=== PATIENT | male | born 1960 | race African-American/Black ===

== ENCOUNTER 2023-05-21 21:55 | Inpatient (IN) | payer MEDICAID ==
[~2023-05-21] VITALS: Ht 190.5 cm; Wt 135.7 kg
[2023-05-21] MEDS ORDERED: ATOR20TA PO (22:13)
[2023-05-21] MEDS ORDERED: GABA-1201 PO (22:13)
[2023-05-21] MEDS ORDERED: RISP3TAB35 PO (22:13)
[2023-05-21 22:53] LABS: BASOPHILS % (AUTO) 1.1 % (0.0-2.0); EOSINOPHILS % (AUTO) 6.3 % (1.0-6.0); HEMATOCRIT 42.1 % (41-53); LYMPHOCYTES # (AUTO) 2.2 K/uL (1.0-4.8); LYMPHOCYTES % (AUTO) 29.5 % (22.0-44.0); MEAN CORPUSCULAR HEMOGLOBIN 31.9 pg (26.0-34.0); MEAN CORPUSCULAR HGB CONC 33.2 G/dL (31.0-37.0); MEAN CORPUSCULAR VOLUME 96 fL (80-100); MONOCYTES # (AUTO) 1.3 K/uL (0.1-1.0); MONOCYTES % (AUTO) 16.8 % (2.0-9.0); NEUTROPHILS # (AUTO) 3.5 K/uL (1.8-7.7); NEUTROPHILS % (AUTO) 46.3 % (40.0-70.0); PLATELET COUNT (AUTO) 193 K/uL (150-450); RED BLOOD CELL COUNT(AUTO) 4.39 MIL/uL (4.50-5.90); RED CELL DISTRIBUTION WIDTH 14.4 % (11.5-14.5)
[2023-05-21 23:01] LABS: CALCIUM, TOTAL 8.5 mg/dL (8.8-10.5); CREATININE 1.56 mg/dL (0.60-1.30); POTASSIUM 3.9 mmol/L (3.5-5.1)
[2023-05-21 23:07] LABS: ALBUMIN 3.6 g/dL (3.4-5.0); BILIRUBIN,TOTAL 0.3 mg/dL (0.1-1.0); TOTAL PROTEIN, SERUM 6.8 g/dL (6.4-8.2)
[2023-05-21 23:24] LABS: AMPHET/METH SCREEN,URINE NEGATIVE (NEGATIVE); BARBITURATE SCREEN, URINE NEGATIVE (NEGATIVE); BENZODIAZEPINES SCREEN,URINE NEGATIVE (NEGATIVE); CANNABINOID SCREEN,URINE NEGATIVE (NEGATIVE); COCAINE SCREEN,URINE NEGATIVE (NEGATIVE); METHADONE SCREEN, URINE NEGATIVE (NEGATIVE); OPIATE SCREEN,URINE NEGATIVE (NEGATIVE); PHENCYCLIDINE SCREEN,URINE NEGATIVE (NEGATIVE)
[2023-05-21] MEDS ORDERED: HALOPERIDOL 5 MG TABLET PO PRN (23:30)
[2023-05-22 00:45] LABS: COVID AG,FIA SOURCE NASAL SWAB
[2023-05-22] MEDS: ZOLPIDEM TARTRATE 10 MG TABLET PO PRN ×2 (01:33→21:15)
[2023-05-22 01:43] VITALS: BP 141/89; PULSE 94; RESP 20; TEMP 96.8; O2SAT 97
[2023-05-22] MEDS ORDERED: BENZOCAINE/MENTHOL LOZENGE PO PRN (09:00)
[2023-05-22] MEDS ORDERED: MAGNESIUM HYDROXIDE SUSPENSION 30 ML UDCUP PO PRN (09:00)
[2023-05-22] MEDS ORDERED: PETROLATUM,WHITE 28 GM JELLY TP PRN (09:00)
[2023-05-22] MEDS ORDERED: ALBUTEROL SULFATE HFA 90 MCG/PUFF 8 GM INHALER IH PRN (09:00)
[2023-05-22] MEDS ORDERED: ACETAMINOPHEN 325 MG TABLET PO PRN (09:00)
[2023-05-22] MEDS ORDERED: LOPERAMIDE HCL 2 MG CAPSULE PO PRN (09:00)
[2023-05-22] MEDS ORDERED: ONDANSETRON HCL 4 MG TABLET PO PRN (09:00)
[2023-05-22] MEDS ORDERED: CloNIDine HCL 0.1 MG TABLET PO PRN (09:00)
[2023-05-22] MEDS ORDERED: BACITRACIN 28 GM OINTMENT TP PRN (09:00)
[2023-05-22] MEDS ORDERED: DOCUSATE SODIUM 100 MG CAPSULE PO PRN (09:00)
[2023-05-22] MEDS ORDERED: OMEPRAZOLE 20 MG CAPSULE PO PRN (09:00)
[2023-05-22] MEDS ORDERED: MAG HYDROX/AL HYDROX/SIMETH ES 30 ML SUSPENSION UDCUP PO PRN (09:00)
[2023-05-22] MEDS: LISINOPRIL 10 MG TABLET PO SCH (09:06)
[2023-05-22] MEDS: ATORVASTATIN CALCIUM 20 MG TABLET PO SCH (09:06)
[2023-05-22] MEDS ORDERED: DEXTROSE 50%-WATER 25 GM/50 ML SYRINGE IVP PRN (09:15)
[2023-05-22 09:36] VITALS: BP 140/74; PULSE 88; RESP 17; TEMP 97.9; O2SAT 98
[2023-05-22 11:16] LABS: GLUCOMETER DEV NAME(LOC) 3EX.2; GLUCOSE,POINT OF CARE 92 MG/DL (70-110)
[2023-05-22] MEDS ORDERED: METF-1211 PO (11:45)
[2023-05-22] MEDS ORDERED: ASPI-1444 PO (11:45)
[2023-05-22] MEDS ORDERED: MIRT-92 PO (11:45)
[2023-05-22] MEDS ORDERED: ATOR-2 PO (11:45)
[2023-05-22] MEDS ORDERED: LOSA100T59 PO (11:45)
[2023-05-22] MEDS ORDERED: AMLO10TA55 PO (11:45)
[2023-05-22 16:21] LABS: GLUCOMETER DEV NAME(LOC) 3EX.2; GLUCOSE,POINT OF CARE 98 MG/DL (70-110)
[2023-05-22 19:50] VITALS: BP 140/74; PULSE 88; RESP 18; TEMP 97.9
[2023-05-22] MEDS: IBUPROFEN 600 MG TABLET PO PRN (19:55)
[2023-05-22 20:10] VITALS: BP 154/81; PULSE 76; RESP 1; TEMP 98.1
[2023-05-22 20:17] LABS: GLUCOMETER DEV NAME(LOC) 3EX.2; GLUCOSE,POINT OF CARE 119 MG/DL (70-110)
[2023-05-22] MEDS: RisperiDONE 3 MG TABLET PO SCH (20:50)
[2023-05-22] MEDS: LORazepam 2 MG TABLET PO PRN (21:16)
[2023-05-23] MEDS: INSULIN LISPRO 100 UNITS/ML SQ PRN ×4 (06:34→22:21)
[2023-05-23 06:46] LABS: GLUCOMETER DEV NAME(LOC) 3EX.2; GLUCOSE,POINT OF CARE 113 MG/DL (70-110)
[2023-05-23 08:16] VITALS: BP 130/87; PULSE 88; RESP 18; TEMP 97.2; O2SAT 97
[2023-05-23] MEDS: LISINOPRIL 10 MG TABLET PO SCH (09:00)
[2023-05-23] MEDS: GABAPENTIN 400 MG CAPSULE PO SCH ×3 (09:00→17:58)
[2023-05-23] MEDS: ATORVASTATIN CALCIUM 20 MG TABLET PO SCH (09:01)
[2023-05-23 12:11] LABS: GLUCOMETER DEV NAME(LOC) 3EX.2; GLUCOSE,POINT OF CARE 98 MG/DL (70-110)
[2023-05-23] MEDS: LORazepam 2 MG TABLET PO PRN (15:47)
[2023-05-23 16:51] LABS: GLUCOMETER DEV NAME(LOC) 3EX.2; GLUCOSE,POINT OF CARE 124 MG/DL (70-110)
[2023-05-23 20:21] LABS: GLUCOMETER DEV NAME(LOC) 3EX.2; GLUCOSE,POINT OF CARE 177 MG/DL (70-110)
[2023-05-23] MEDS: RisperiDONE 3 MG TABLET PO SCH (20:24)
[2023-05-23 21:42] VITALS: BP 134/84; PULSE 90; RESP 18; TEMP 97.7
[2023-05-24] MEDS: INSULIN LISPRO 100 UNITS/ML SQ PRN ×4 (06:35→21:03)
[2023-05-24 06:46] LABS: GLUCOMETER DEV NAME(LOC) 3EX.2; GLUCOSE,POINT OF CARE 111 MG/DL (70-110)
[2023-05-24 09:00] VITALS: BP 134/90; RESP 18; TEMP 97.2
[2023-05-24] MEDS: GABAPENTIN 400 MG CAPSULE PO SCH ×3 (09:44→18:37)
[2023-05-24] MEDS: LISINOPRIL 10 MG TABLET PO SCH (09:44)
[2023-05-24] MEDS: ATORVASTATIN CALCIUM 20 MG TABLET PO SCH (09:45)
[2023-05-24 12:01] LABS: GLUCOMETER DEV NAME(LOC) 3EX.2; GLUCOSE,POINT OF CARE 77 MG/DL (70-110)
[2023-05-24 17:36] LABS: GLUCOMETER DEV NAME(LOC) 3EX.2; GLUCOSE,POINT OF CARE 103 MG/DL (70-110)
[2023-05-24 19:04] VITALS: BP 136/78; PULSE 94; RESP 18; TEMP 97.6
[2023-05-24] MEDS: IBUPROFEN 600 MG TABLET PO PRN (19:04)
[2023-05-24 20:04] VITALS: RESP 17
[2023-05-24 20:36] LABS: GLUCOMETER DEV NAME(LOC) 3EX.2; GLUCOSE,POINT OF CARE 123 MG/DL (70-110)
[2023-05-24] MEDS: RisperiDONE 3 MG TABLET PO SCH (20:52)
[2023-05-24 21:27] VITALS: BP 130/85; PULSE 89; RESP 19; TEMP 97.9
[2023-05-25 06:22] LABS: GLUCOMETER DEV NAME(LOC) 3EX.2; GLUCOSE,POINT OF CARE 102 MG/DL (70-110)
[2023-05-25] MEDS: INSULIN LISPRO 100 UNITS/ML SQ PRN ×2 (06:37→20:28)
[2023-05-25 08:14] VITALS: BP 110/83; PULSE 99; RESP 18; TEMP 98.3; O2SAT 96
[2023-05-25] MEDS: ATORVASTATIN CALCIUM 20 MG TABLET PO SCH (09:37)
[2023-05-25] MEDS: GABAPENTIN 400 MG CAPSULE PO SCH ×3 (09:37→16:26)
[2023-05-25] MEDS: LISINOPRIL 10 MG TABLET PO SCH (09:38)
[2023-05-25 11:20] LABS: GLUCOMETER DEV NAME(LOC) 3EX.2; GLUCOSE,POINT OF CARE 136 MG/DL (70-110)
[2023-05-25 12:48] VITALS: BP 130/78; PULSE 89; RESP 18
[2023-05-25] MEDS: IBUPROFEN 600 MG TABLET PO PRN (12:50)
[2023-05-25 18:21] LABS: GLUCOMETER DEV NAME(LOC) 3EX.2; GLUCOSE,POINT OF CARE 108 MG/DL (70-110)
[2023-05-25] MEDS: RisperiDONE 3 MG TABLET PO SCH (20:24)
[2023-05-25 20:31] LABS: GLUCOMETER DEV NAME(LOC) 3EX.2; GLUCOSE,POINT OF CARE 190 MG/DL (70-110)
[2023-05-25 21:08] VITALS: BP 122/87; PULSE 98; RESP 18; TEMP 97.1; O2SAT 97
[2023-05-26 06:37] LABS: GLUCOMETER DEV NAME(LOC) 3EX.2; GLUCOSE,POINT OF CARE 109 MG/DL (70-110)
[2023-05-26 08:27] VITALS: BP 138/76; PULSE 84; RESP 17; TEMP 97.6; O2SAT 96
[2023-05-26] MEDS: GABAPENTIN 400 MG CAPSULE PO SCH ×3 (08:44→17:32)
[2023-05-26] MEDS: LISINOPRIL 10 MG TABLET PO SCH (08:45)
[2023-05-26] MEDS: ATORVASTATIN CALCIUM 20 MG TABLET PO SCH (08:45)
[2023-05-26 11:16] LABS: GLUCOMETER DEV NAME(LOC) 3EX.2; GLUCOSE,POINT OF CARE 114 MG/DL (70-110)
[2023-05-26 13:06] VITALS: BP 136/78; PULSE 88; RESP 19; TEMP 97.3
[2023-05-26] MEDS: IBUPROFEN 600 MG TABLET PO PRN (13:06)
[2023-05-26 14:06] VITALS: BP 134/82; PULSE 86; RESP 18; TEMP 97.4
[2023-05-26 17:06] LABS: GLUCOMETER DEV NAME(LOC) 3EX.2; GLUCOSE,POINT OF CARE 93 MG/DL (70-110)
[2023-05-26] MEDS: RisperiDONE 3 MG TABLET PO SCH (20:16)
[2023-05-26 20:21] LABS: GLUCOMETER DEV NAME(LOC) 3EX.2; GLUCOSE,POINT OF CARE 122 MG/DL (70-110)
[2023-05-26 21:06] VITALS: BP 120/80; PULSE 87; RESP 18; TEMP 97.5
[2023-05-27 06:41] LABS: GLUCOMETER DEV NAME(LOC) 3EX.2; GLUCOSE,POINT OF CARE 101 MG/DL (70-110)
[2023-05-27] MEDS: LISINOPRIL 10 MG TABLET PO SCH (08:07)
[2023-05-27] MEDS: GABAPENTIN 400 MG CAPSULE PO SCH ×3 (08:07→16:27)
[2023-05-27] MEDS: ATORVASTATIN CALCIUM 20 MG TABLET PO SCH (08:07)
[2023-05-27 09:38] VITALS: BP 156/94; PULSE 69; RESP 18; TEMP 97.8; O2SAT 98
[2023-05-27 11:26] LABS: GLUCOMETER DEV NAME(LOC) 3EX.2; GLUCOSE,POINT OF CARE 80 MG/DL (70-110)
[2023-05-27 16:16] LABS: GLUCOMETER DEV NAME(LOC) 3EX.2; GLUCOSE,POINT OF CARE 99 MG/DL (70-110)
[2023-05-27] MEDS: IBUPROFEN 600 MG TABLET PO PRN (19:43)
[2023-05-27] MEDS: RisperiDONE 3 MG TABLET PO SCH (20:08)
[2023-05-27 20:26] LABS: GLUCOMETER DEV NAME(LOC) 3EX.2; GLUCOSE,POINT OF CARE 114 MG/DL (70-110)
[2023-05-27 20:29] VITALS: BP 123/80; PULSE 74; RESP 18; TEMP 97.5
[2023-05-28 06:26] LABS: GLUCOMETER DEV NAME(LOC) 3EX.2; GLUCOSE,POINT OF CARE 90 MG/DL (70-110)
[2023-05-28] MEDS: ATORVASTATIN CALCIUM 20 MG TABLET PO SCH (08:19)
[2023-05-28] MEDS: GABAPENTIN 400 MG CAPSULE PO SCH ×3 (08:20→16:18)
[2023-05-28] MEDS: LISINOPRIL 10 MG TABLET PO SCH (08:20)
[2023-05-28 08:33] VITALS: BP 147/104; PULSE 62; RESP 16; TEMP 97.6; O2SAT 97
[2023-05-28 11:36] LABS: GLUCOMETER DEV NAME(LOC) 3EX.2; GLUCOSE,POINT OF CARE 92 MG/DL (70-110)
[2023-05-28] MEDS: IBUPROFEN 600 MG TABLET PO PRN ×2 (13:48→19:45)
[2023-05-28 13:54] VITALS: BP 127/87; PULSE 78; RESP 18
[2023-05-28 16:27] LABS: GLUCOMETER DEV NAME(LOC) 3EX.2; GLUCOSE,POINT OF CARE 100 MG/DL (70-110)
[2023-05-28 19:20] VITALS: BP 129/85; PULSE 88; RESP 19; TEMP 97.7; O2SAT 96
[2023-05-28 20:12] VITALS: BP 123/79; PULSE 87; RESP 18; TEMP 97.9; O2SAT 97
[2023-05-28 20:32] LABS: GLUCOMETER DEV NAME(LOC) 3EX.2; GLUCOSE,POINT OF CARE 118 MG/DL (70-110)
[2023-05-28 20:45] VITALS: TEMP 97.9
[2023-05-28] MEDS: RisperiDONE 3 MG TABLET PO SCH (21:06)
[2023-05-28] MEDS: ZOLPIDEM TARTRATE 10 MG TABLET PO PRN (21:09)
[2023-05-29 05:42] LABS: GLUCOMETER DEV NAME(LOC) 3EX.2; GLUCOSE,POINT OF CARE 94 MG/DL (70-110)
[2023-05-29] MEDS: LISINOPRIL 10 MG TABLET PO SCH (08:30)
[2023-05-29] MEDS: GABAPENTIN 400 MG CAPSULE PO SCH ×3 (08:30→16:05)
[2023-05-29] MEDS: ATORVASTATIN CALCIUM 20 MG TABLET PO SCH (08:30)
[2023-05-29] MEDS: IBUPROFEN 600 MG TABLET PO PRN ×2 (08:33→21:08)
[2023-05-29 08:34] VITALS: BP 126/92; PULSE 84; RESP 18; TEMP 98; O2SAT 98
[2023-05-29 11:17] LABS: GLUCOMETER DEV NAME(LOC) 3EX.2; GLUCOSE,POINT OF CARE 80 MG/DL (70-110)
[2023-05-29 16:21] LABS: GLUCOMETER DEV NAME(LOC) 3EX.2; GLUCOSE,POINT OF CARE 133 MG/DL (70-110)
[2023-05-29 20:12] VITALS: BP 132/84; PULSE 82; RESP 18; TEMP 97.1; O2SAT 96
[2023-05-29 20:46] LABS: GLUCOMETER DEV NAME(LOC) 3EX.2; GLUCOSE,POINT OF CARE 126 MG/DL (70-110)
[2023-05-29 21:08] VITALS: BP 135/79; PULSE 88; RESP 18; TEMP 97.5; O2SAT 97
[2023-05-29] MEDS: RisperiDONE 3 MG TABLET PO SCH (21:08)
[2023-05-29] MEDS: LORazepam 2 MG TABLET PO PRN (21:08)
[2023-05-29 22:08] VITALS: TEMP 97.7
[2023-05-29] MEDS: ZOLPIDEM TARTRATE 10 MG TABLET PO PRN (22:11)
[2023-05-30 05:47] LABS: GLUCOMETER DEV NAME(LOC) 3EX.2; GLUCOSE,POINT OF CARE 94 MG/DL (70-110)
[2023-05-30] MEDS: LISINOPRIL 10 MG TABLET PO SCH (08:24)
[2023-05-30] MEDS: GABAPENTIN 400 MG CAPSULE PO SCH ×3 (08:24→15:58)
[2023-05-30] MEDS: ATORVASTATIN CALCIUM 20 MG TABLET PO SCH (08:24)
[2023-05-30 08:30] VITALS: BP 130/69; PULSE 78; RESP 18; TEMP 97.5; O2SAT 98
[2023-05-30] MEDS: IBUPROFEN 600 MG TABLET PO PRN (16:00)
[2023-05-30 16:27] LABS: GLUCOMETER DEV NAME(LOC) 3EX.2; GLUCOSE,POINT OF CARE 136 MG/DL (70-110)
[2023-05-30 20:30] VITALS: BP 101/77; PULSE 97; RESP 18; TEMP 97.7; O2SAT 99
[2023-05-30] MEDS: RisperiDONE 3 MG TABLET PO SCH (20:33)
[2023-05-30] MEDS: ZOLPIDEM TARTRATE 10 MG TABLET PO PRN (21:03)
[2023-05-31 06:27] LABS: GLUCOMETER DEV NAME(LOC) 3E.C; GLUCOSE,POINT OF CARE 103 MG/DL (70-110)
[2023-05-31 08:00] VITALS: BP 123/68; PULSE 81; RESP 17; TEMP 97.1; O2SAT 100
[2023-05-31] MEDS: ATORVASTATIN CALCIUM 20 MG TABLET PO SCH (08:06)
[2023-05-31] MEDS: GABAPENTIN 400 MG CAPSULE PO SCH ×3 (08:06→16:29)
[2023-05-31] MEDS: LISINOPRIL 10 MG TABLET PO SCH (08:06)
[2023-05-31] MEDS: IBUPROFEN 600 MG TABLET PO PRN (12:16)
[2023-05-31 12:18] VITALS: BP 126/74; PULSE 84; RESP 18; TEMP 97.4
[2023-05-31 12:23] VITALS: BP 126/74; PULSE 84; RESP 18; TEMP 97.4
[2023-05-31 13:16] VITALS: BP 128/76; PULSE 82; RESP 18; TEMP 97.2
[2023-05-31 16:31] LABS: GLUCOMETER DEV NAME(LOC) 3E.C; GLUCOSE,POINT OF CARE 94 MG/DL (70-110)
[2023-05-31] MEDS ORDERED: LISI-893 PO (18:25)
== END 2023-05-31 19:10 | disposition home or self-care (01) | DRG 750 ==
LOC: EMS 21:57 → 3EC 05-22 00:24 → 3EI 05-30 18:54
PROVIDERS: ADMIT Psychiatry & Neurology Psychiatry; ATTEND Psychiatry & Neurology Psychiatry
DX: F25.9 Schizoaffective disorder, unspecified (principal); E11.9 Type 2 diabetes mellitus without complications; R45.851 Suicidal ideations; G47.00 Insomnia, unspecified; F41.9 Anxiety disorder, unspecified; Z20.822 Contact with and (suspected) exposure to COVID-19; F31.9 Bipolar disorder, unspecified; E78.00 Pure hypercholesterolemia, unspecified; F10.10 Alcohol abuse, uncomplicated; I10 Essential (primary) hypertension; K59.00 Constipation, unspecified; F15.90 Other stimulant use, unspecified, uncomplicated; E66.9 Obesity, unspecified; Z86.73 Personal history of transient ischemic attack (TIA), and cerebral infarction without residual deficits; Z79.82 Long term (current) use of aspirin; Z79.899 Other long term (current) drug therapy; Z68.37 Body mass index [BMI] 37.0-37.9, adult; Z87.891 Personal history of nicotine dependence
CPT/HCPCS: 80053; 80307; 82962; 85025; 99285; G0480

== ENCOUNTER 2023-06-03 22:37 | Emergency (ER) | payer MEDICAID ==
[~2023-06-03] VITALS: Ht 190.5 cm; Wt 131.8 kg
[~2023-06-03 22:37] MED LIST: ATOR-2 PO; GABA-1201 PO; LISI-893 PO; RISP3TAB35 PO
[2023-06-03 22:39] VITALS: BP 106/45; PULSE 114; RESP 18; TEMP 98
[2023-06-03] MEDS ORDERED: ASPI-1444 PO (22:47)
[2023-06-03] MEDS ORDERED: AMLO10TA55 PO (22:47)
[2023-06-03] MEDS ORDERED: METF-1211 PO (22:47)
[2023-06-03] MEDS ORDERED: MIRT-89 PO (22:47)
[2023-06-03] MEDS ORDERED: IBUP-1506 PO (22:58)
[2023-06-03 23:38] LABS: GLUCOMETER DEV NAME(LOC) ERT.5; GLUCOSE,POINT OF CARE 102 MG/DL (70-110)
[2023-06-04 01:21] LABS: ANION GAP 14 mmol/L (8-16); CALCIUM, TOTAL 10.1 mg/dL (8.8-10.5); CARBON DIOXIDE 23 mmol/L (22-29); CHLORIDE 98 mmol/L (98-107); CREATININE 1.43 mg/dL (0.60-1.30); GLOMERULAR FILTR. RATE CALC > 60 mL/min (>60); GLUCOSE,RANDOM 130 mg/dL (70-110); POTASSIUM 3.6 mmol/L (3.5-5.1); SODIUM SERUM 135 mmol/L (136-145)
[2023-06-04 01:24] LABS: BASOPHILS % (AUTO) 0.8 % (0.0-2.0); EOSINOPHILS % (AUTO) 2.9 % (1.0-6.0); HEMATOCRIT 44.7 % (41-53); HEMOGLOBIN 14.9 g/dL (13.5-17.5); LYMPHOCYTES # (AUTO) 2.3 K/uL (1.0-4.8); LYMPHOCYTES % (AUTO) 22.6 % (22.0-44.0); MEAN CORPUSCULAR HEMOGLOBIN 31.6 pg (26.0-34.0); MEAN CORPUSCULAR HGB CONC 33.4 G/dL (31.0-37.0); MEAN CORPUSCULAR VOLUME 95 fL (80-100); MONOCYTES # (AUTO) 2.4 K/uL (0.1-1.0); MONOCYTES % (AUTO) 23.4 % (2.0-9.0); NEUTROPHILS # (AUTO) 5.2 K/uL (1.8-7.7); NEUTROPHILS % (AUTO) 50.3 % (40.0-70.0); PLATELET COUNT (AUTO) 232 K/uL (150-450); RED BLOOD CELL COUNT(AUTO) 4.73 MIL/uL (4.50-5.90); RED CELL DISTRIBUTION WIDTH 13.4 % (11.5-14.5)
[2023-06-04 01:26] LABS: ALANINE AMINOTRANSFERASE 40 U/L (12-78); ALBUMIN 4.3 g/dL (3.4-5.0); ALKALINE PHOSPHATASE 84 U/L (46-116); ASPARTATE AMINOTRANSFERASE 56 U/L (15-37); TOTAL PROTEIN, SERUM 8.5 g/dL (6.4-8.2)
[2023-06-04] MEDS ORDERED: RisperiDONE 1 MG TABLET PO ONE (02:00)
[2023-06-04] MEDS ORDERED: GABA-1201 PO (02:07)
[2023-06-04] MEDS ORDERED: RISP3TAB63 PO (02:07)
[2023-06-04] MEDS ORDERED: GABAPENTIN 100 MG CAPSULE PO ONE (02:15)
== END 2023-06-04 02:34 | disposition home or self-care (01) ==
LOC: EMS 22:37
DX: S90.02XA Contusion of left ankle, initial encounter (principal); F20.9 Schizophrenia, unspecified; M25.562 Pain in left knee; E78.00 Pure hypercholesterolemia, unspecified; F31.9 Bipolar disorder, unspecified; I10 Essential (primary) hypertension; F17.210 Nicotine dependence, cigarettes, uncomplicated; F15.90 Other stimulant use, unspecified, uncomplicated; W19.XXXA Unspecified fall, initial encounter; Y93.89 Activity, other specified; Y92.89 Other specified places as the place of occurrence of the external cause; Y99.8 Other external cause status
CPT/HCPCS: 99284; 80053; 82962; 85025; 36415; 73562; 73610; G0480

== ENCOUNTER 2023-06-04 08:35 | Emergency (ER) | payer MEDICAID ==
[~2023-06-04] VITALS: Ht 190.5 cm; Wt 131.8 kg
[~2023-06-04 08:35] MED LIST changes: +AMLO10TA55 PO; +ASPI-1444 PO; +IBUP-1506 PO; +METF-1211 PO; +MIRT-89 PO; +RISP3TAB63 PO
[2023-06-04 08:43] VITALS: TEMP 98.2
[2023-06-04 10:29] LABS: HEMATOCRIT 42.8 % (41-53); HEMOGLOBIN 14.6 g/dL (13.5-17.5); MEAN CORPUSCULAR HEMOGLOBIN 32.6 pg (26.0-34.0); MEAN CORPUSCULAR HGB CONC 34.2 G/dL (31.0-37.0); MEAN CORPUSCULAR VOLUME 95 fL (80-100); PLATELET COUNT (AUTO) 211 K/uL (150-450); RED BLOOD CELL COUNT(AUTO) 4.49 MIL/uL (4.50-5.90); RED CELL DISTRIBUTION WIDTH 13.6 % (11.5-14.5)
[2023-06-04 10:36] LABS: AMPHET/METH SCREEN,URINE NEGATIVE (NEGATIVE); BARBITURATE SCREEN, URINE NEGATIVE (NEGATIVE); BENZODIAZEPINES SCREEN,URINE NEGATIVE (NEGATIVE); CANNABINOID SCREEN,URINE NEGATIVE (NEGATIVE); COCAINE SCREEN,URINE NEGATIVE (NEGATIVE); METHADONE SCREEN, URINE NEGATIVE (NEGATIVE); OPIATE SCREEN,URINE NEGATIVE (NEGATIVE); PHENCYCLIDINE SCREEN,URINE NEGATIVE (NEGATIVE)
[2023-06-04 10:41] LABS: ANION GAP 10 mmol/L (8-16); CALCIUM, TOTAL 9.8 mg/dL (8.8-10.5); CARBON DIOXIDE 28 mmol/L (22-29); CHLORIDE 102 mmol/L (98-107); GLOMERULAR FILTR. RATE CALC > 60 mL/min (>60); GLUCOSE,RANDOM 123 mg/dL (70-110); POTASSIUM 4.2 mmol/L (3.5-5.1); SODIUM SERUM 140 mmol/L (136-145)
[2023-06-04 10:46] LABS: ALANINE AMINOTRANSFERASE 40 U/L (12-78); ALBUMIN 4.2 g/dL (3.4-5.0); ALKALINE PHOSPHATASE 78 U/L (46-116); ASPARTATE AMINOTRANSFERASE 53 U/L (15-37); BILIRUBIN,TOTAL 1.2 mg/dL (0.1-1.0); TOTAL PROTEIN, SERUM 7.9 g/dL (6.4-8.2)
[2023-06-04 11:08] LABS: BAND NEUTROPHILS % (MANUAL) 2 % (0-5); LYMPHOCYTES % (MANUAL) 20 % (22-44); MONOCYTES % (MANUAL) 11 % (2-9); SEGMENTED NEUTROPHILS % 67 % (40-70)
[2023-06-04 13:00] VITALS: BP 123/82; PULSE 81; RESP 18
== END 2023-06-04 13:38 | disposition home or self-care (01) ==
LOC: EMS 08:35
DX: F25.9 Schizoaffective disorder, unspecified (principal); F31.9 Bipolar disorder, unspecified; E78.00 Pure hypercholesterolemia, unspecified; I10 Essential (primary) hypertension; F17.210 Nicotine dependence, cigarettes, uncomplicated; F15.90 Other stimulant use, unspecified, uncomplicated
CPT/HCPCS: 99284; 80053; 82962; 85025; 36415; 80307; G0480

== ENCOUNTER 2023-11-05 17:06 | Inpatient (IN) | payer MEDICAID ==
[~2023-11-05] VITALS: Ht 188 cm; Wt 122.7 kg
[~2023-11-05 17:06] MED LIST changes: -RISP3TAB63 PO
[2023-11-05 18:31] LABS: GLUCOMETER DEV NAME(LOC) POC.BV; POC SARS-COV2 AG, FIA NEGATIVE (NEGATIVE)
[2023-11-05 18:51] VITALS: BP 134/88; PULSE 97; RESP 17; TEMP 98.9
[2023-11-05] MEDS ORDERED: LORazepam 2 MG TABLET PO PRN (19:00)
[2023-11-05] MEDS ORDERED: ZOLPIDEM TARTRATE 10 MG TABLET PO PRN (19:00)
[2023-11-05] MEDS ORDERED: HALOPERIDOL 5 MG TABLET PO PRN (19:00)
[2023-11-05 19:35] VITALS: BP 121/86; PULSE 91; RESP 18; TEMP 97.8; O2SAT 99
[2023-11-05] MEDS ORDERED: INFLUENZA VIRUS VACCINE QVS 2023-24 (6MO+)/PF 60 MCG/0.5 ML SYRINGE IM. ONE (19:45)
[2023-11-05] MEDS ORDERED: PNEUMOCOCCAL VACCINE POLYVALENT 0.5 ML SYRINGE [PPSV23] IM. ONE (19:45)
[2023-11-05 20:31] LABS: GLUCOMETER DEV NAME(LOC) BV2S.; GLUCOSE,POINT OF CARE 113 MG/DL (70-110)
[2023-11-05] MEDS: AmLODIPine BESYLATE 5 MG TABLET PO SCH (21:31)
[2023-11-05] MEDS: GABAPENTIN 400 MG CAPSULE PO SCH (21:31)
[2023-11-05 21:56] VITALS: RESP 18; TEMP 97.8
[2023-11-06] MEDS ORDERED: MAGNESIUM HYDROXIDE SUSPENSION 30 ML UDCUP PO PRN (05:30)
[2023-11-06] MEDS ORDERED: OMEPRAZOLE 20 MG CAPSULE PO PRN (05:30)
[2023-11-06] MEDS ORDERED: DOCUSATE SODIUM 100 MG CAPSULE PO PRN (05:30)
[2023-11-06] MEDS ORDERED: CloNIDine HCL 0.1 MG TABLET PO PRN (05:30)
[2023-11-06] MEDS ORDERED: LOPERAMIDE HCL 2 MG CAPSULE PO PRN (05:30)
[2023-11-06] MEDS ORDERED: ACETAMINOPHEN 325 MG TABLET PO PRN (05:30)
[2023-11-06] MEDS ORDERED: BACITRACIN 28 GM OINTMENT TP PRN (05:30)
[2023-11-06] MEDS ORDERED: MAG HYDROX/ALUMINUM HYD/SIMETH ES 30 ML SUSPENSION UDCUP PO PRN (05:30)
[2023-11-06] MEDS ORDERED: PETROLATUM,WHITE 28 GM JELLY TP PRN (05:30)
[2023-11-06] MEDS ORDERED: BENZOCAINE/MENTHOL LOZENGE PO PRN (05:30)
[2023-11-06] MEDS ORDERED: ALBUTEROL SULFATE HFA 90 MCG/PUFF 8 GM INHALER IH PRN (05:30)
[2023-11-06] MEDS ORDERED: IBUPROFEN 600 MG TABLET PO PRN (05:30)
[2023-11-06] MEDS ORDERED: ONDANSETRON HCL 4 MG TABLET PO PRN (05:30)
[2023-11-06] MEDS: AmLODIPine BESYLATE 5 MG TABLET PO SCH (08:16)
[2023-11-06] MEDS: GABAPENTIN 400 MG CAPSULE PO SCH ×3 (08:16→16:22)
[2023-11-06 08:27] LABS: HEMOGLOBIN 15.1 g/dL (13.5-17.5); MEAN CORPUSCULAR HEMOGLOBIN 33.3 pg (26.0-34.0); MEAN CORPUSCULAR HGB CONC 33.5 G/dL (31.0-37.0); MEAN CORPUSCULAR VOLUME 99 fL (80-100); PLATELET COUNT (AUTO) 211 K/uL (150-450); RED BLOOD CELL COUNT(AUTO) 4.53 MIL/uL (4.50-5.90); RED CELL DISTRIBUTION WIDTH 14.3 % (11.5-14.5); WHITE BLOOD COUNT (AUTO) 4.9 K/uL (4.5-11.0)
[2023-11-06 09:22] LABS: ALANINE AMINOTRANSFERASE 28 U/L (12-78); ALBUMIN 3.2 g/dL (3.4-5.0); ALKALINE PHOSPHATASE 79 U/L (46-116); ANION GAP 5 mmol/L (8-16); ASPARTATE AMINOTRANSFERASE 16 U/L (15-37); BILIRUBIN,TOTAL 0.5 mg/dL (0.1-1.0); CALCIUM, TOTAL 8.8 mg/dL (8.8-10.5); CARBON DIOXIDE 29 mmol/L (22-29); CHLORIDE 109 mmol/L (98-107); CHOL/HDL RATIO 2.5 (4.2-7.3); CHOLESTEROL 177 mg/dL (131-200); CREATININE 1.32 mg/dL (0.60-1.30); FREE T4 (FREE THYROXINE) 0.97 ng/dL (0.76-1.46); GLOMERULAR FILTR. RATE CALC > 60 mL/min (>60); GLUCOSE,RANDOM 99 mg/dL (70-110); HDL CHOLESTEROL 70 mg/dL (40-60); LDL CHOL (CALC.) 99 mg/dL (0-130); POTASSIUM 4.3 mmol/L (3.5-5.1); SODIUM SERUM 143 mmol/L (136-145); THYROID STIMULATING HORMONE 1.04 uIU/mL (0.36-3.74); TOTAL PROTEIN, SERUM 6.8 g/dL (6.4-8.2); TRIGLYCERIDES 40 mg/dL (15-150); UREA NITROGEN, BLOOD 13 mg/dL (7-18)
[2023-11-06 09:28] VITALS: BP 129/90; PULSE 81; RESP 18; TEMP 97.3; O2SAT 98
[2023-11-06 11:16] LABS: HEMOGLOBIN A1C 5.6 % (3.8-5.6)
[2023-11-06 11:42] LABS: BAND NEUTROPHILS % (MANUAL) 1 % (0-5); LYMPHOCYTES % (MANUAL) 35 % (22-44); MONOCYTES % (MANUAL) 12 % (2-9); SEGMENTED NEUTROPHILS % 52 % (40-70); TOTAL CELLS COUNTED 100
[2023-11-06 11:43] LABS: RBC MORPHOLOGY COMMENT NORMAL RBC MORPH
[2023-11-06] MEDS: RisperiDONE 2 MG TABLET PO SCH (16:22)
[2023-11-06] MEDS ORDERED: GABAPENTIN 400 MG CAPSULE PO SCH (17:00)
[2023-11-06 20:38] VITALS: BP 137/94; PULSE 73; RESP 17; TEMP 98.5; O2SAT 98
[2023-11-06] MEDS ORDERED: MIRTAZAPINE 15 MG TABLET PO SCH (21:00)
[2023-11-07] MEDS: GABAPENTIN 400 MG CAPSULE PO SCH ×2 (08:38→12:42)
[2023-11-07] MEDS: AmLODIPine BESYLATE 5 MG TABLET PO SCH (08:39)
[2023-11-07] MEDS: RisperiDONE 2 MG TABLET PO SCH (08:39)
[2023-11-07 09:07] LABS: HEPATITIS C AB (EIA) Non Reactive (Non Reactive)
[2023-11-07 09:12] VITALS: BP 144/94; PULSE 73; RESP 19; TEMP 97.6; O2SAT 99
[2023-11-07] MEDS ORDERED: RISP2TAB86 PO (12:04)
[2023-11-07] MEDS ORDERED: GABA-1201 PO (12:05)
[2023-11-07] MEDS ORDERED: AMLO-257 PO (12:09)
== END 2023-11-07 13:45 | disposition home or self-care (01) | DRG 750 ==
LOC: B2S 19:00
PROVIDERS: ADMIT Psychiatry & Neurology Psychiatry; ATTEND Psychiatry & Neurology Psychiatry
DX: F20.9 Schizophrenia, unspecified (principal); E11.9 Type 2 diabetes mellitus without complications; R45.851 Suicidal ideations; E66.9 Obesity, unspecified; E78.5 Hyperlipidemia, unspecified; F10.90 Alcohol use, unspecified, uncomplicated; Z20.822 Contact with and (suspected) exposure to COVID-19; F41.9 Anxiety disorder, unspecified; K59.00 Constipation, unspecified; I10 Essential (primary) hypertension; G47.00 Insomnia, unspecified; Z68.34 Body mass index [BMI] 34.0-34.9, adult
CPT/HCPCS: 80053; 80061; 82962; 83036; 84439; 84443; 85025; 86592; 86803; 87340; 90732

== ENCOUNTER 2024-05-21 18:36 | Emergency (ER) | payer MEDICAID ==
[~2024-05-21] VITALS: Ht 188.6 cm; Wt 126.4 kg
[~2024-05-21 18:36] MED LIST changes: +AMLO-257 PO; -AMLO10TA55 PO; -ASPI-1444 PO; -ATOR-2 PO; -IBUP-1506 PO; -LISI-893 PO; -METF-1211 PO; +RISP-32 PO; -RISP3TAB35 PO
[2024-05-21 18:46] VITALS: BP 114/75; PULSE 100; RESP 20; TEMP 97.6
== END 2024-05-21 22:15 | disposition home or self-care (01) ==
LOC: EMS 18:49
DX: M19.90 Unspecified osteoarthritis, unspecified site (principal); F25.9 Schizoaffective disorder, unspecified; F15.10 Other stimulant abuse, uncomplicated; F31.9 Bipolar disorder, unspecified; E78.00 Pure hypercholesterolemia, unspecified; I10 Essential (primary) hypertension; F17.210 Nicotine dependence, cigarettes, uncomplicated; Z98.890 Other specified postprocedural states
CPT/HCPCS: 99281; Z7502